=== PATIENT | female | born 1995 | race Caucasian/White ===

== ENCOUNTER → 2018-06-25 09:20 | Outpatient (CLI) | payer SELFPAY ==
--- NOTE | 2018-06-25 | DI.US.S_ITS ---
PROCEDURE: US OB FOLLOW UP INDICATIONS: NOSE/LIPS OUTSIDE/PRIOR DATING DATA: Last menstrual period (LMP): 10/27/17. LMP-based estimated date of delivery (BREANA): 08/03/18. First dating scan (date and location): 12/15/17. Estimated date of delivery (BREANA) from first dating scan: 08/11/18. TECHNIQUE: Real-time scanning was performed of the fetus, with image documentation. Endovaginal scanning: No COMPARISON: [facility], US, US OB > 14 WEEKS COMPLETE ANATOMY, 03/23/2018, 10:58. FINDINGS: A single living intrauterine gestation is present. Presentation: Vertex. Placenta: Placental position is posterior, without previa. Amniotic fluid index: 16 .9 cm, normal range is 5-24 cm. heart rate: 130 beats per minute. Maternal cervical canal: 3.9 cm long. Normal lower limit is 2.5 cm. Estimated gestational age from initial scan: 33 weeks 5 days Normal appearance of the nose and lips.. IMPRESSION: Single living IUP redemonstrated and normal appearance of the nose and lips. Dictated by: Avi Herrera [facility] Interpreted: Phillip Agee MD on 06/25/2018 at 13:37 Approved by: Phillip Agee M.D. on 06/25/2018 at 14:34
== END ==
PROVIDERS: Visit Provider Family Medicine
DX: Z36.89 Encounter for other specified antenatal screening (principal); Z3A.33 33 weeks gestation of pregnancy
CPT/HCPCS: 76816

== ENCOUNTER → 2020-01-07 13:42 | Outpatient (CLI) | payer OTHER, SELFPAY ==
--- NOTE | 2020-01-07 | DI.US.S_ITS ---
PROCEDURE: US OB >= 14 WEEKS FETUS INDICATIONS: 20 WEEK ANATOMICAL SURVEY OUTSIDE/PRIOR DATING DATA: Last menstrual period (LMP): Not available. LMP-based estimated date of delivery (BREANA): Not available. First dating scan (date and location): 10/16/19. Estimated date of delivery (BREANA) from first dating scan: 06/06/20. TECHNIQUE: Real-time scanning was performed of the fetus, with image documentation and biometric measurements. Endovaginal scanning: Not needed COMPARISON: None. FINDINGS: General: A single living intrauterine gestation is present. Presentation: Vertex. Placenta: Placental position is posterior, without previa. Amniotic fluid index: 12.1 cm, normal range is 5-24 cm. heart rate: 168 beats per minute. Maternal cervical canal: 4.4 cm long. Normal lower limit is 2.5 cm. biometrics: Biparietal diameter: 4.2 cm, 18 weeks 4 days Head circumference: 15.2 cm, 18 weeks 2 days Abdominal circumference: 13.3 cm, 18 weeks 6 days Femur length: 2.8 cm, 18 weeks 4 days Estimated gestational age from initial scan: 18 weeks 3 days Composite gestational age from present scan: 18 weeks 4 days Estimated weight and percentile: 250 g, 59th percentile Measurement variability for biometric dating: +/- 7 days from 14 weeks to 15 weeks 6 days gestation, +/- 10 days from 16 weeks to 21 weeks 6 days gestation, +/- 2 weeks from 22 weeks to 27 weeks 6 days gestation, +/- 3 weeks for 28 weeks gestation or later. weight reference: 4500 g or EFW >90/95% is considered macrosomia or large for gestational age. EFW <10% is small for gestational age. EFW 5% or less is considered intra-uterine growth restriction. Anatomic survey: Neuro: Ventricles are non-dilated at less than 10 mm. Cisterna magna is normal at 3-11 mm. Cerebellum is normal in size and morphology. Nuchal skin fold: Normal at less than 6 mm between 14-21 weeks gestational age. Face: Nose and lips, facial profile are not well seen due to positioning. Spine: No evidence for spina bifida. Heart: 4-chambered heart is present, with normal ventricular outflow tracts. Diaphragm: Diaphragm is intact. Stomach: Left-sided stomach is present. Kidneys: No hydronephrosis. Normal is less than 5 mm in 2nd trimester, less than 7 mm in 3rd trimester. Cord: 3-vessel cord has orthotopic insertion. Bladder: Normal in size. Extremities: All 4 extremities identified. IMPRESSION: Appropriate interval growth, no anomaly seen. The facial area is not well-visualized due to positioning. It may be warranted to obtain followup completion of the anatomic survey by return of the patient in approximately 10 days to attempt visualization of this area. Dictated by: Phillip Agee M.D. on 01/07/2020 at 15:36 Approved by: Phillip Agee M.D. on 01/07/2020 at 15:39
== END ==
PROVIDERS: Referring Provider Midwife; Visit Provider Midwife
DX: Z36.89 Encounter for other specified antenatal screening (principal); Z3A.18 18 weeks gestation of pregnancy
CPT/HCPCS: 76811